=== PATIENT | female | born 1970 | race Caucasian/White ===

== ENCOUNTER 2016-09-24 20:03 | Emergency (ER) | payer SELFPAY ==
[~2016-09-24] VITALS: Ht 167.6 cm; Wt 52.2 kg
[2016-09-24] MEDS ORDERED: IV NORMAL SALINE 1000 ML BAG IV ONE (20:45)
--- NOTE | 2016-09-24 20:58 | NUR ---
Unable to start IV line at this time. Patient states that she usually gets a central line or PICC line. ERMD notified.
[2016-09-24 21:08] LABS: BASOPHILS % (AUTO) 0.7 % (0.0-2.0); EOSINOPHILS # (AUTO) 0.2 K/uL (0.0-0.7); EOSINOPHILS % (AUTO) 3.4 % (0.0-7.0); HEMATOCRIT 32.4 % (37-47); LYMPHOCYTES # (AUTO) 1.5 K/UL (0.8-4.8); LYMPHOCYTES % (AUTO) 23.3 % (20.5-51.5); MEAN CORPUSCULAR HEMOGLOBIN 31.1 UUG (27.0-31.0); MEAN CORPUSCULAR HGB CONC 34 g/dL (32.0-37.0); MEAN CORPUSCULAR VOLUME 91.9 FL (81.0-99.0); MONOCYTES # (AUTO) 0.7 K/UL (0.1-1.30); MONOCYTES % (AUTO) 10.1 % (0.0-11.0); NEUTROPHILS # (AUTO) 4.2 K/UL (1.8-8.9); NEUTROPHILS % (AUTO) 62.5 % (38.5-71.5); PLATELET COUNT (AUTO) 250 K/UL (150-450); RED BLOOD CELL COUNT(AUTO) 3.53 MIL/UL (4.2-5.4); WHITE BLOOD COUNT (AUTO) 6.6 K/UL (4.0-11.2)
[2016-09-24 21:13] LABS: *BILIRUBIN,URIN NEGATIVE (NEGATIVE); *BLOOD, URINE 3+ (NEGATIVE); *CLARITY,URINE CLOUDY (CLEAR); *COLOR,URINE YELLOW (YELLOW); *KETONES,URINE NEGATIVE (NEGATIVE); LEUKOCYTE ESTERASE ,URINE 2+ (NEGATIVE); NITRITE, URINE NEGATIVE (NEGATIVE); UGLUCOSE NEGATIVE (NEGATIVE)
[2016-09-24 21:16] LABS: *URINE HCG, QUAL NEGATIVE (NEGATIVE)
[2016-09-24 21:19] LABS: BILIRUBIN,DIRECT 0.1 mg/dL (0.0-0.2); BILIRUBIN,TOTAL 0.2 mg/dL (0.2-1.0); CREATININE 0.7 mg/dL (0.6-1.3); POTASSIUM 3.8 mmol/L (3.5-5.1); TOTAL PROTEIN, SERUM 6.4 g/dL (6.4-8.2)
[2016-09-24 21:22] LABS: *PROTEIN,URINE 3+ (NEGATIVE)
[2016-09-24 21:23] LABS: BACTERIA,URINE MODERATE /HPF (NONE SEEN); RBC,URINE 50-80 /HPF (0-3); SQUAMOUS EPITHELIAL CELL,UR FEW /HPF (NONE SEEN); WBC,URINE TNTC /HPF (0-3)
[2016-09-24] MEDS ORDERED: CIPROFLOXACIN HCL 250 MG TABLET PO ONE (21:45)
--- NOTE | 2016-09-24 21:52 | NUR ---
Patient discharged to home in stable conditon. Written and verbal after care instructions given. Patient verbalizes understanding of instructions.
[2016-09-24] MEDS ORDERED: CIPROFLOXACIN HCL 250 MG TABLET ONE (21:59)
== END 2016-09-24 21:53 | disposition home or self-care (01) ==
LOC: ER 20:19
DX: N12 Tubulo-interstitial nephritis, not specified as acute or chronic (principal); D64.9 Anemia, unspecified
CPT/HCPCS: 36415; 83690; 84703; 85025; 87077; 87086; A4663; J7030

== ENCOUNTER 2017-12-04 14:06 | Emergency (ER) | payer OTHER ==
[~2017-12-04] VITALS: Ht 167.6 cm; Wt 54.4 kg
--- NOTE | 2017-12-04 14:26 | NUR ---
Dr Chavis at the bedside for MSE.
[2017-12-04] MEDS ORDERED: BENZONATATE 100 MG CAPSULE PO ONE (14:30)
[2017-12-04] MEDS ORDERED: ALBUTEROL SULFATE 2.5 MG/3 ML NEBU CONT NEB ONE (14:30)
[2017-12-04] MEDS ORDERED: ALBUTEROL SULFATE 2.5 MG/3 ML NEBU ONE (14:45)
[2017-12-04] MEDS ORDERED: BENZONATATE 100 MG CAPSULE ONE (14:51)
[2017-12-04] MEDS ORDERED: IBUPROFEN 600 MG TABLET PO ONE (15:15)
[2017-12-04] MEDS ORDERED: IBUPROFEN 600 MG TABLET ONE (15:18)
--- NOTE | 2017-12-04 15:52 | NUR ---
Patient discharged to home in stable conditon. Written and verbal after care instructions given. Patient verbalizes understanding of instructions.
[2017-12-04 15:53] VITALS: BP 112/76
== END 2017-12-04 15:53 | disposition home or self-care (01) ==
LOC: ER 14:06
DX: J20.8 Acute bronchitis due to other specified organisms (principal); B97.89 Other viral agents as the cause of diseases classified elsewhere; F17.200 Nicotine dependence, unspecified, uncomplicated; F11.10 Opioid abuse, uncomplicated; F15.10 Other stimulant abuse, uncomplicated; Z59.0 Homelessness
CPT/HCPCS: 71045; A4663

== ENCOUNTER 2020-03-18 23:52 | Emergency (ER) | payer SELFPAY ==
--- NOTE | 2020-03-19 00:33 | NUR ---
CALLED 3 TIMES NO ANSWER. PT LEFT W/O BEING TRIAGED
== END 2020-03-19 00:34 | disposition left against medical advice (07) ==
LOC: ER 23:59
DX: Z75.3 Unavailability and inaccessibility of health-care facilities (principal)

== ENCOUNTER 2021-04-15 19:17 | Emergency (ER) | payer OTHER ==
--- NOTE | 2021-04-15 19:24 | NUR ---
CALLED PATIENT TO BE TRIAGED BUT WAS NOT PRESENT IN THE ER WAITING ROOM OR OUTSIDE OF ER.
--- NOTE | 2021-04-15 19:38 | NUR ---
PATIENT WAS CALLED TO BE TRIAGED BUT WAS NOT PRESENT IN THE WAITING ROOM OR OUTSIDE OF ER.
--- NOTE | 2021-04-15 19:55 | NUR ---
CALLED PATIENT TO BE TRIAGED BUT WAS NOT PRESENT IN THE WAITING ROOM OR OUTSIDE OF ER. PATIENT WAS NOT TRIAGED OR SEEN BY ERMD.
== END 2021-04-15 20:00 | disposition left against medical advice (07) ==
LOC: ER 19:20
DX: Z53.21 Procedure and treatment not carried out due to patient leaving prior to being seen by health care provider (principal)

== ENCOUNTER 2021-04-25 02:01 | Emergency (ER) | payer OTHER ==
[~2021-04-25] VITALS: Ht 167.6 cm; Wt 54.4 kg
--- NOTE | 2021-04-25 02:11 | NUR ---
Pt arrived at the ER with c/o headache, dizziness, and redness in eye since AM.
--- NOTE | 2021-04-25 02:14 | NUR ---
Dr. Egan on bedside for MSE.
[2021-04-25] MEDS ORDERED: ACETAMINOPHEN ES 500 MG TABLET PO ONE (02:30)
[2021-04-25] MEDS ORDERED: ACETAMINOPHEN ES 500 MG TABLET ONE (02:35)
--- NOTE | 2021-04-25 02:39 | NUR ---
Patient discharged to home in stable condition. Written and verbal after care instructions given. Patient verbalizes understanding of instructions. Stressed follow up or return to ER for worsening s/s. Patient ambulated from the ER with steady gait. All belongings with patient.
[2021-04-25 02:40] VITALS: BP 105/84
== END 2021-04-25 02:40 | disposition home or self-care (01) ==
LOC: ER 02:06
DX: R51.9 Headache, unspecified (principal); F20.9 Schizophrenia, unspecified; F11.10 Opioid abuse, uncomplicated; Z71.6 Tobacco abuse counseling; F17.210 Nicotine dependence, cigarettes, uncomplicated
CPT/HCPCS: A4663; A9150